=== PATIENT | male | born 1980 | race Caucasian/White ===

== ENCOUNTER → 2018-10-04 | Outpatient (CLI) | payer OTHER ==
--- NOTE | 2018-10-04 18:45 | RADIOLOGY IMAGING REPORT ---
FACILITY: [facility] [place] PATIENT NAME: Neftaly Li : 1980 MR: [id number] V: [id number] EXAM DATE: ORDERING PHYSICIAN: LIZETTE DOWNEY TECHNOLOGIST: Location: [facility] [place] Patient: Neftaly Li : 1980 Visit/Account:[id number] Date of Sevice: 10/04/2018 KNEE RIGHT W/O CONTRAST HISTORY: Evaluate bone graft material prior to ACL reconstruction ADDITIONAL HISTORY: None. TECHNIQUE: CT images were obtained through the right knee without intravenous contrast. 2D coronal a nd sagittal images obtained from the initial data. One of the following dose optimization techniques was utilized in the performance of this exam: automated exposure control; adjustment of the mA and/or kv according to patient size; or use of iterative reconstruction technique. Specific details can be referenced in the facility's radiology CT exam operational policy. CONTRAST: None COMPARISON: MRI 08/10/2017 FINDINGS: Knee: No acute fracture or dislocation. Tiny lateral joint space osteophytes. No evidence of AVN. No joint effusion No loose body. Prior ACL reconstruction with interval bone graft material filling both the tibial and femoral tunnels extending to the margins of both tunnels. Soft tissues: Negative Other findings: None significant IMPRESSION: 1. Prior ACL reconstruction with interval bone graft material filling both the tibial and femoral joann gregory extending to the margins of both tunnels. Report Dictated By: Lazaro Loco MD at 10/04/2018 6:34 PM Report E-Signed By: Lazaro Loco MD at 10/04/2018 6:41 PM WSN:[id number]
== END ==
LOC: CT 14:44
PROVIDERS: ATTEND Orthopaedic Surgery
DX: Z98.890 Other specified postprocedural states (principal)